=== PATIENT | female | born 1955 | race Caucasian/White ===

== ENCOUNTER → 2020-01-25 | Outpatient (CLI) | payer BC ==
[~2020-01-25] MED LIST: AMLO10TA8 PO; ASPI325T11 PO; ATEN25TA42 PO; CRESTOR10 MG PO; INSU100V37 SQ; METF10007 PO; VENL150C PO
== END ==
LOC: LAB 09:15
PROVIDERS: ATTEND Nurse Anesthetist, Certified Registered
DX: Z01.812 Encounter for preprocedural laboratory examination (principal); K92.1 Melena; Z20.828 Contact with and (suspected) exposure to other viral communicable diseases
CPT/HCPCS: U0003-CS

== ENCOUNTER → 2020-01-29 | Day surgery (SDC) | payer BC ==
[~2020-01-29] MED LIST changes: +IPRATRPIUM/ALBUTEROL 0.5/2.5MG 3 ML NEBU. NEB PRN; +IV RINGERS SOLUTION,LACTATED 1,000 ML IV SCH; +MIDAZOLAM HCL PF 2 MG/2 ML VIAL. IV ONE; +ONDANSETRON PF 4 MG/2 ML VIAL. IV PRN
[2020-01-29 10:55] VITALS: BP 120/68
--- NOTE | 2020-02-01 16:08 | PATHOLOGY ---
[facility] Accession Number: [id number] . 01 Material submitted: . colon - TRANSVERSE POLYP. Modifiers: transverse . 02 Diagnosis: Colon biopsies, transverse colon polyp: - Tubular adenoma. - Fecal (vegetable) material. (JPM:db/kendy; 02/01/2020) LBQ 02/01/2020 0825 Local . 02 Comment: There is no high grade dysplasia or evidence of malignancy. (JPM/db/kendy; 02/01/2020) . 02 Electronically signed: . Jayce Grover MD, Pathologist NPI- [id number] . 01 Gross description: . The specimen is received in formalin, labeled "Lucina Coleyker, transverse polyp". Received is a moderate amount of light garduno to yellow-green vegetative material measuring 2.8 x 1.2 x 0.2 cm in aggregate dimensions. Soft tissue is not grossly identified. The specimen is filtered and entirely submitted in cassette A1. ([facility]; 01/30/2020) QAC/QAC 01/30/2020 1637 Local . 02 Pathologist provided ICD-10: D12.3 . 02 CPT . 707154 Specimen Comment: A courtesy copy of this report has been sent to [phone] Specimen Comment: Report sent to / DR MATTHEW Performed at: 01 [facility] [address], [place] [id number] MD Supa Bui MD Phone: [phone] Performed at: 02 [facility] [address] [place], [place] [id number] MD Jayce Grover MD Phone: [phone]
== END | disposition home or self-care (01) ==
LOC: SURG 08:30
PROVIDERS: ATTEND Emergency Medicine
DX: K92.1 Melena (principal); K64.8 Other hemorrhoids; D12.3 Benign neoplasm of transverse colon; Z88.2 Allergy status to sulfonamides; Z87.891 Personal history of nicotine dependence; Z79.82 Long term (current) use of aspirin; Z79.899 Other long term (current) drug therapy
CPT/HCPCS: 45385; 82947; J2704; J7120